=== PATIENT | female | born 1995 | race Hispanic/Latino ===

== ENCOUNTER 2022-10-27 11:03 | Outpatient (CLI) | payer BC | END 2022-10-27 11:04 | disposition home or self-care (01) | LOC: CSHRAD 11:03 | PROVIDERS: ATTEND Neurological Surgery | DX: M54.50 Low back pain, unspecified (principal); S32.019D Unspecified fracture of first lumbar vertebra, subsequent encounter for fracture with routine healing | CPT/HCPCS: 72100 ==